=== PATIENT | female | born 1990 | race Caucasian/White ===

== ENCOUNTER 2022-05-16 15:18 | Outpatient (CLI) | payer BC | END 2022-05-16 15:19 | disposition home or self-care (01) | LOC: CSHLAB 15:18 | PROVIDERS: ATTEND Podiatrist Foot & Ankle Surgery | DX: Z20.822 Contact with and (suspected) exposure to COVID-19 (principal) | CPT/HCPCS: U0003; U0005 ==

== ENCOUNTER 2022-05-21 09:28 | Day surgery (SDC) | payer BC ==
[2022-05-19 12:14] VITALS: BMI 31.7
[~2022-05-21 09:28] MED LIST: Bupivacaine PF 0.5% 30 ML VIAL ONE
[2022-05-21] MEDS ORDERED: Lidocaine 1% MPF 2 ML VIAL ONE (09:44)
[2022-05-21] MEDS ORDERED: Midazolam HCl 2 mg/2 ml Vial ONE (11:09)
[2022-05-21] MEDS ORDERED: CEFAZOLIN 2 GM VIAL ONE (11:19)
[2022-05-21] MEDS ORDERED: Dexamethasone 4 mg/ml Vial ONE (11:28)
[2022-05-21] MEDS ORDERED: Fentanyl 100 MCG/2 ML VIAL ONE ×2 (11:28→12:09)
[2022-05-21] MEDS ORDERED: Ondansetron PF 4 MG/2 ML Vial ONE (11:28)
[2022-05-21] MEDS ORDERED: PROPOFOL 20 ML ONE ×2 (11:28→11:44)
[2022-05-21] MEDS ORDERED: Lidocaine 2% PF 5 ML VIAL ONE (11:29)
[2022-05-21] MEDS ORDERED: Ketorolac Tromethamine 30 MG/ML VIAL ONE (12:08)
== END 2022-05-21 14:40 | disposition home or self-care (01) ==
LOC: CSHSDC 09:28
PROVIDERS: ATTEND Podiatrist Foot & Ankle Surgery
PROC: 0SSK04Z Reposition Right Tarsometatarsal Joint with Internal Fixation Device, Open Approach (ICD-10-PCS; principal; 2022-05-21)
DX: S93.324A Dislocation of tarsometatarsal joint of right foot, initial encounter (principal); F17.200 Nicotine dependence, unspecified, uncomplicated; G89.29 Other chronic pain; M54.2 Cervicalgia; Z79.899 Other long term (current) drug therapy; X58.XXXA Exposure to other specified factors, initial encounter
CPT/HCPCS: C1713; C1769; J0690; J1100; J1885; J2001; J2250; J2405; J2704; J3010; S0020